=== PATIENT | male | born 1960 | race Caucasian/White ===

== ENCOUNTER 2021-08-27 18:20 | Observation (INO) | payer BC ==
[~2021-08-27] VITALS: Ht 180.3 cm; Wt 103.9 kg
[2021-08-27 19:37] LABS: HEMOGLOBIN 14.8 gm/dl (14.0-17.5); RED BLOOD COUNT 4.83 M/UL (4.20-5.50)
[2021-08-27 19:48] LABS: BORDETELLA PARAPERTUSSIS Not Detected (Not Detectd); BORDETELLA PERTUSSIS Not Detected (Not Detectd); CHLAMYDIA PNEUMONIAE Not Detected (Not Detectd); CORONAVIRUS HKU1 Not Detected (Not Detectd); CORONAVIRUS NL63 Not Detected (Not Detectd); CORONAVIRUS OC43 Not Detected (Not Detectd); CORONOAVIRUS 229E Not Detected (Not Detectd); HUMAN METAPNEUMOVIRUS Not Detected (Not Detectd); HUMAN RHINOVIRUS/ENTEROVIRUS Not Detected (Not Detectd); INFLUENZA A Not Detected (Not Detectd); INFLUENZA B Not Detected (Not Detectd); MYCOPLASMA PNEUMONIAE Not Detected (Not Detectd); PARAINFLUENZA VIRUS 1 Not Detected (Not Detectd); PARAINFLUENZA VIRUS 2 Not Detected (Not Detectd); PARAINFLUENZA VIRUS 3 Not Detected (Not Detectd); PARAINFLUENZA VIRUS 4 Not Detected (Not Detectd); RESPIRATORY SYNCYTIAL VIRUS Not Detected (Not Detectd)
[2021-08-27 21:32] LABS: SARS-CoV-2 DETECTED (Not Detectd)
[2021-08-28 05:30] LABS: HEMOGLOBIN 13.9 gm/dl (14.0-17.5); RED BLOOD COUNT 4.66 M/UL (4.20-5.50)
[2021-08-28 05:34] LABS: WHITE BLOOD COUNT 5.2 K/UL (4.5-11.0)
[2021-08-28 05:52] LABS: BUN/CREATININE RATIO 22 (0-10)
[2021-08-28] MEDS ORDERED: ALFUZOSIN HCL E10 MG PO (09:56)
[2021-08-28] MEDS ORDERED: PLAQUENIL200 MG PO (09:57)
[2021-08-28] MEDS ORDERED: SINGULAIR10 MG PO (09:57)
[2021-08-28] MEDS ORDERED: BENICAR HCT 401 EACH PO (09:58)
[2021-08-28] MEDS ORDERED: VITAMIN C 500500 MG PO (09:58)
[2021-08-28] MEDS ORDERED: NEXIUM20 MG PO (09:58)
[2021-08-28] MEDS ORDERED: PROVENTIL HFA6.7 GM INH (14:42)
[2021-08-28] MEDS ORDERED: LEVOFLOXACIN500 MG PO (14:42)
== END 2021-08-28 16:15 | disposition home or self-care (01) ==
LOC: ER1 18:20 → CDU 22:25
PROVIDERS: Emergency Medicine; Internal Medicine; ADMIT Internal Medicine Infectious Disease
DX: U07.1 COVID-19 (principal); J12.82 Pneumonia due to coronavirus disease 2019; J96.01 Acute respiratory failure with hypoxia; I10 Essential (primary) hypertension; E86.0 Dehydration; N40.0 Benign prostatic hyperplasia without lower urinary tract symptoms; Z79.899 Other long term (current) drug therapy; Z88.0 Allergy status to penicillin; Z88.5 Allergy status to narcotic agent
CPT/HCPCS: 36600; 71045; 80048; 80053; 81001; 82550; 82553; 82803; 83605; 83690; 83735; 83874; 83880; 84100; 84439; 84443; 84484; 85025; 85379; 85610; 85730; 87040; 87633; 96372; 96374; 99285; G0378; J1100; J1650; J7030; Q9967